=== PATIENT | male | born 1985 | race African-American/Black ===

== ENCOUNTER 2022-10-09 10:59 | Emergency (ER) | payer SELFPAY ==
[~2022-10-09] VITALS: Ht 177.8 cm; Wt 100.0 kg
[2022-10-09 11:03] VITALS: BP 172/94; PULSE 87; RESP 16; TEMP 98.7; O2SAT 100
[2022-10-09 12:11] LABS: BG BASE EXCESS 0.1 mmol/L (-2.0-2.0); BG CARBOXYHEMOGLOBIN 0.5 % (0.5-1.5); BG DEOXYHEMOGLOBIN 3.2 % (0.0-5.0); BG METHEMOGLOBIN 0.4 % (0.0-1.5); BG OXYGEN SATURATION 96.8 % (92.0-98.5); BG OXYHEMOGLOBIN 95.9 % (94.0-97.0); BG PCO2 41.4 mmHg (35.0-45.0); BG PH 7.399 (7.350-7.450); BG PO2 84.5 mmHg (75.0-100.0); BG SAMPLE SITE LEFT RADIAL; BG TOTAL HEMOGLOBIN 14.8 g/dL (12.0-18.0); BG VENT MODE ROOM AIR
== END 2022-10-09 13:56 ==
LOC: ER 10:59
DX: T59.811A Toxic effect of smoke, accidental (unintentional), initial encounter (principal); I10 Essential (primary) hypertension; R06.02 Shortness of breath; Y92.89 Other specified places as the place of occurrence of the external cause
CPT/HCPCS: 36600; 82375; 82805; 99283